=== PATIENT | male | born 1990 | race Caucasian/White ===

== ENCOUNTER → 2024-07-28 | Outpatient (CLI) | payer BC, SELFPAY ==
--- NOTE | 2024-07-28 10:10 | RAD_ITS ---
STUDY: X-RAY CHEST REASON FOR EXAM: Male, 34 years old. One week history of cough and chest congestion. TECHNIQUE: PA and lateral views of the chest. COMPARISON: None. FINDINGS: Elevation of the anterior aspect of the right hemidiaphragm. The lungs are clear and expanded. There is no demonstrated pleural abnormality. Normal size heart. Normal mediastinum and crystal. Normal visualized pulmonary arteries. Normal visualized aortic arch and descending thoracic aorta. Normal visualized thoracic spine. Normal visualized ribs, clavicles, and shoulders. There is no demonstrated abnormality of the visualized soft tissue structures of the upper abdomen. RAD/Chest PA and Lateral IMPRESSION: Normal x-ray examination of the chest. Electronically Signed: Lyndon Fischer MD at 10:38 EST ,
== END | disposition home or self-care (01) ==
LOC: MTRAD 10:07
PROVIDERS: PCP Physician Assistant; Referring Provider Physician Assistant Surgical; Visit Provider Physician Assistant Surgical
DX: R05.9 Cough, unspecified (principal)
CPT/HCPCS: 71046